=== PATIENT | male | born 1990 | race Caucasian/White ===

== ENCOUNTER 2016-10-24 12:45 | Emergency (ER) | payer BC, OTHER ==
[~2016-10-24] VITALS: Ht 170.2 cm; Wt 85.6 kg
[~2016-10-24 12:45] MED LIST: ADVIL,NUPRIN,M200 MG PO; ADVIL200 MG PO; BENADRYL ALLERG25 MG PO; BENZOYL PEROXI TP; BUSPIRONE HCL5 MG PO; CELEXA40 MG; CITALOPRAM HBR40 MG PO; CLARITIN10 M3 PO; CLONIDINE HCL0.1 MG PO; COGENTIN0.5 MG PO; DEPAKOTE ER500 MG PO; DEPAKOTE250 MG PO; DEPAKOTE500 MG PO; DIAZEPAM10 MG PO; DILANTIN100 MG PO; DOXYCYCLINE HY100 MG PO; EAR WAX DROPS15 ML BOTH EARS; FLUCONAZOLE100 MG PO; HYDROCORTISON28.4 GM TP; HYDROGEN PEROX473 ML TP; IMODIUM MS REL1 EACH PO; KEFLEX500 MG PO; LOPERAMIDE2 M1 PO; LOPERAMIDE2 MG PO; LORATADINE10 M2 PO; MELATIN3 MG PO; MELATONIN3 MG PO; MELATONIN5 M1 PO; MIRALAX17 GM PO; MOTRIN IB200 MG PO; PHENYTOIN SODI100 M1 PO; PROBIOTIC FORM1 EAC1 PO; PROBIOTIC1 EAC1 PO; PROMETHAZINE HC25 M1 PO; PSEUDOEPHEDRINE30 MG PO; Q-TUSSIN DM SY240 ML PO; RISPERDAL1 MG PO; RISPERDAL2 MG PO; RISPERIDONE2 MG PO; RISPERIDONE3 MG PO; ROBITUSSIN100 MG/5 M PO; SUDOGEST30 MG PO; TRIPLE ANTIB28.35 GM TP; TYLENOL REGULA325 MG PO; VALIUM10 MG PO
[2016-10-24 14:22] LABS: ADD MIUA? NO; BILIRUBIN NEGATIVE; BLOOD NEGATIVE; COLOR STRAW ((YELLOW)); GLUCOSE (STRIP) NEGATIVE; KETONES NEGATIVE; LEUKOCYTES NEGATIVE; NITRITE NEGATIVE; PROTEIN (STRIP) NEGATIVE; SPECIFIC GRAVITY 1.009 (1.000-1.030); UCUL ADDED? NO; UROBILINOGEN 0.2 MG/DL (0.2-1.0)
[2016-10-24 14:26] LABS: EOSINOPHIL (%) 0.5 % (0-5); HEMATOCRIT 41.2 % (38.0-50.0); IMMATURE GRANULOCYTE (%) 0.9 % (0.0-0.7); IMMATURE GRANULOCYTE COUNT 0.1 K/uL; INSTRUMENT ABS NEUTROPHIL CT 5.6 K/uL; LYMPHOCYTE COUNT 1.9 K/uL (1.0-2.8); MCH 30.4 PG (29.0-34.0); MCHC 33.3 G/DL (30.0-36.0); MCV 91.4 FL (86-99); MEAN PLAT.VOLUME 9.8 uM^3 (9.0-12.4); MONOCYTE (%) 6.2 % (3-12); MONOCYTE COUNT 0.5 K/uL (0-0.8); NEUTROPHIL (%) 68.7 % (45-76); NEUTROPHIL COUNT 5.6 K/uL (1.8-6.4); PLATELET COUNT 171 K/uL (156-360); RBC DIS.WIDTH-CV 11.4 % (11.8-14.6); RBC DIS.WIDTH-SD 38.4 % (39-53); RED BLOOD COUNT 4.51 M/uL (4.00-5.50); WHITE BLOOD COUNT 8.1 K/uL (4.1-10.2)
[2016-10-24 14:34] LABS: AMPHETAMINE NEGATIVE (500 ng/mL); BARBITURATES NEGATIVE (200 ng/mL); BENZODIAZEPINES NEGATIVE (150 ng/mL); COCAINE NEGATIVE (150 ng/mL); INTERNAL CONTROLS VALID? YES; METHADONE NEGATIVE (200 ng/mL); METHAMPHETAMINE NEGATIVE (500 ng/mL); OPIATES (MORPHINE) NEGATIVE (100 ng/mL); OXYCODONE NEGATIVE (100 ng/mL); PHENCYCLIDINE NEGATIVE (25 ng/mL); PROPOXYPHENE NEGATIVE (300 ng/mL); THC CANNABINOIDS NEGATIVE (50 ng/mL); TRICYCLIC ANTIDEPRESSANTS NEGATIVE (300 ng/mL)
[2016-10-24 14:34] LABS: CHLORIDE 105 mEq/L (99-109); POTASSIUM 4.2 mEq/L (3.7-5.4); SODIUM 142 mEq/L (136-147)
[2016-10-24 14:36] LABS: GLUCOSE 82 mg/dL (70-99)
[2016-10-24 14:37] LABS: ANION GAP 9 MEQ/L (2-14)
[2016-10-24 14:39] LABS: SERUM ETHYL ALCOHOL < 10 mg/dL
[2016-10-24 14:40] LABS: GFR ESTIMATE (CALCULATED) > 59 mL/min/
[2016-10-24 14:41] LABS: UREA NITROGEN (BUN) 12 mg/dL (9-23)
[2016-10-24 16:25] VITALS: BP 131/82
== END 2016-10-24 16:26 | disposition home or self-care (01) ==
LOC: EME 12:45
PROVIDERS: Emergency Medicine
DX: F91.9 Conduct disorder, unspecified (principal); R10.9 Unspecified abdominal pain; F84.0 Autistic disorder; F79 Unspecified intellectual disabilities; F31.81 Bipolar II disorder
CPT/HCPCS: 80048; 81003; 85025; 90839; 99281; 99284; G0480